=== PATIENT | female | born 1990 | race Caucasian/White ===

== ENCOUNTER 2020-07-31 19:38 | Emergency (ER) | payer SELFPAY ==
[2020-07-31 19:58] VITALS: BP 134/85; PULSE 102; RESP 14; TEMP 37.2; O2SAT 100; BMI 26.6
--- NOTE | 2020-07-31 20:06 | ED_ITS ---
HPI - Skin/Abscess/Foreign Bdy General: Chief complaint: Skin/Abscess/Foreign Body Stated complaint: ABSCESS Time Seen by Provider: 07/31/20 20:04 Source: patient Mode of arrival: ambulatory Limitations: no limitations History of Present Illness: HPI narrative: 30-year-old female comes in with left thumb discomfort. Patient reports accidentally getting a thorn stuck in her thumb about 4 to 5 days ago. At that time she was able to remove the thorn and thought she had gotten all the she suspects that there is a retained bit of the forearm still. Patient has been using some rub on the area to help with the pain. Wound started draining purulent drainage today. Redness is localized to the distal tip of the thumb. Review of Systems General: Reports: 10 or more systems reviewed and unremarkable except in HPI and below Skin/Breast: Reports: erythema and skin tenderness Physical Exam Const: COMMON NORMALS: no acute distress and patient oriented x3 GENERAL APPEARANCE: cooperative HENMT: COMMON NORMALS: normocephalic and Normal external nose present HEAD & SCALP: normal to inspection and normocephalic NOSE: Normal external nose present Eye: GENERAL EYE: appearance normal, both eyes and all related structures Neck/C-Spine: COMMON NORMALS: full ROM Chest: COMMONS NORMALS: normal inspection of the chest Resp: COMMON NORMALS: normal respiratory effort EFFORT & INSPECTION: Yes able to speak in complete sentences Cardio: COMMON NORMALS: regular rate and regular rhythm RATE: regular rate RHYTHM: regular rhythm GI: COMMON NORMALS: non-tender Back/Pelvis: COMMON NORMALS: thoracic and lumbar spine normal to inspection Extremity: NARRATIVE EXTREMITY EXAM: Distal left thumb has redness and lesion with purulent drainage coming from the lesion site. No streaking or redness is going up the thumb. Tendon function is normal. Neuro: COMMON NORMALS: patient oriented x3 and moves all extremities Psych: COMMON NORMALS: mental status grossly normal and cooperative Skin: COMMON NORMALS: no rashes or lesions noted GENERAL SKIN EXAM: no rashes or lesions noted Procedures Abscess I/D Site: hand Side (if applicable): left Sedation/analgesia: none Local Anesthetic: lidocaine 1% and with epi Amount of anesthesia used (mL): 4 Technique: incised with #11 blade Irrigation: Yes Packing used?: none Course Vital Signs: Vital signs: Vital Signs Temperature 98.9 F 07/31/20 19:58 Pulse Rate 102 H 07/31/20 19:58 Respiratory Rate 14 07/31/20 19:58 Blood Pressure 134/85 07/31/20 19:58 Pulse Oximetry 100 07/31/20 19:58 MDM - Skin/Abscess/Foreign Bdy MDM Narrative: Medical decision making narrative: 30-year-old female comes in today with injury to the distal left thumb. On exam we have a purulent lesion to the left thumb. Patient states that she had a thorn got got stuck in the end of her thumb 4 days ago and since then it has become inflamed and purulent drainage has been coming from the wound site. Differential diagnosis includes but not limited to wound infection, retained foreign body, abscess. For concern of retained foreign body incision was made and wound was irrigated thoroughly to a bloodless barrier no signs of foreign body was noted. Wound was left open and patient was started on oral antibiotics. Patient was given 1 dose of cephalexin and 1 dose of Bactrim in the ER. She will be continued on Bactrim due to her history of staph infection. Patient was prescribed some hydrocodone for breakthrough pain. Patient reported understanding of care plan and need for follow-up or return. Discharge Plan Discharge Patient Disposition: Home Clinical Impression: Abscess of skin or subcutaneous tissue Qualifiers: Site of cutaneous abscess: extremity Site of cutaneous abscess of extremity: hand Laterality: left Qualified Code(s): L02.512 - Cutaneous abscess of left hand Condition: Stable Prescriptions: New Bactrim DS 800-160 mg tablet 1 tab PO DAILY 7 Days Qty: 14 RF: 0 hydrocodone-acetaminophen 5-325 mg tablet 1 tab PO Q6H PRN (Reason: pain) Qty: 6 RF: 0 Discharge Orders: Discharge Order (Routine); Ordered 07/31/20 Ordered By: Aravind Perrin Discharge Diet: Usual diet Discharge Activity: Increase activity as tolerated Patient Instructions: Abscess Incision and Drainage (ED) Activity Restrictions/Additional Instructions: Keep wound clean and dry. Take antibiotics as directed. Wash wound with gentle soap and water. Dry thoroughly and apply dressing. Use acetaminophen and ibuprofen to control pain. Use hydrocodone for uncontrolled pain. Use ice or heat for further pain relief. Follow-up with primary care for further treatment. Return to the emergency department for new concerns. 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
[2020-07-31] MEDS: cephALEXin 500 mg Capsule PO (21:10)
[2020-07-31] MEDS: HYDROcodone-acetaminophen 5-325 mg Tablet 1 TAB PO (21:10)
[2020-07-31] MEDS: sulfamethoxazole-trimeth DS 160-800 mg Tablet 1 TAB PO (21:10)
--- NOTE | 2020-07-31 21:24 | PC.NURSE ---
I&D completed by provider. Flushed with NS. Dressed with gauze and wrapped with coban. Pt tolerated well.
[2020-07-31 21:28] VITALS: BP 128/65; PULSE 87; RESP 16; O2SAT 100
== END 2020-07-31 21:30 | disposition home or self-care (01) ==
PROVIDERS: Emergency Provider Nurse Practitioner Family
DX: L02.512 Cutaneous abscess of left hand (principal)
CPT/HCPCS: 12345; 26010; 99281; 99283